=== PATIENT | male | born 1950 | race Caucasian/White ===

== ENCOUNTER 2021-11-01 14:57 | Emergency (ER) | payer OTHER ==
[~2021-11-01] VITALS: Ht 165.1 cm; Wt 65.8 kg
[2021-11-01 14:57] VITALS: BP_SYST 151
--- NOTE | 2021-11-01 14:57 | NUR ---
BROUGHT IN BY [facility] FROM [facility], TRIAGED AND PLACED IN BED #3. DR WOO AT BEDSIDE UPON ARRIVAL.
[2021-11-01] MEDS ORDERED: ALBUTEROL SULFATE 0.083% 2.5 MG/3 ML VIAL.NEB INH ONE (15:15)
[2021-11-01] MEDS ORDERED: IPRATROPIUM BROM 0.5 MG/2.5 ML VIAL.NEB (ATROVENT) INH ONE (15:15)
[2021-11-01] MEDS ORDERED: AMIO200T61 PO (15:22)
[2021-11-01] MEDS ORDERED: RIVA20TA PO (15:22)
[2021-11-01] MEDS ORDERED: METO-542 PO (15:22)
[2021-11-01] MEDS ORDERED: SODI126M PO (15:22)
[2021-11-01] MEDS ORDERED: TAMS-11 PO (15:22)
[2021-11-01] MEDS ORDERED: DEME150T8 PO (15:22)
[2021-11-01] MEDS ORDERED: NOR10 PO (15:22)
[2021-11-01] MEDS ORDERED: BENA40TA89 PO (15:22)
[2021-11-01] MEDS ORDERED: LIP10 PO (15:22)
[2021-11-01] MEDS ORDERED: PRO40 PO (15:22)
[2021-11-01] MEDS ORDERED: ASPI-1077 PO (15:22)
[2021-11-01] MEDS ORDERED: OXYIR5 PO (15:22)
--- NOTE | 2021-11-01 16:33 | NUR ---
REPORT TO SOILA UMANZOR
[2021-11-01 16:41] LABS: ANION GAP 7 (5-15); CALCIUM 8.3 mg/dL (8.4-11.0); CHLORIDE 94 mmol/L (98-107); CREATININE 0.84 mg/dL (0.55-1.30); GLUCOSE 129 mg/dL (70-99); POTASSIUM 4.5 mmol/L (3.5-5.1); SODIUM SERUM 127 mmol/L (136-145); UREA NITROGEN, BLOOD 20 mg/dL (8-21)
--- NOTE | 2021-11-01 16:45 | NUR ---
[place] of care received, per report patient had an episode of low O2 at [facility], pt is on 4L NC at the facility, pt O2 is 97 % on 4L NC at this time, afebrile, respirations are even adn unlabored, follows commands, cap refill <3, HR 101, BP 121/61, will cont to monitor.
[2021-11-01 16:51] LABS: ALANINE AMINOTRANSFERASE 10 U/L (12-78); ALBUMIN 2.1 g/dL (3.4-4.8); ASPARTATE AMINOTRANSFERASE 21 U/L (10-37); TOTAL BILIRUBIN 0.4 mg/dL (0.0-1.0)
[2021-11-01 16:59] LABS: BASOPHILS # (AUTO) 0.1 K/uL (0.0-0.2); BASOPHILS % (AUTO) 0.8 % (0.0-2.0); EOSINOPHILS # (AUTO) 0.1 K/uL (0.0-0.4); HEMATOCRIT 29.2 % (36-54); HEMOGLOBIN 9.4 g/dL (14.0-18.0); LYMPHOCYTES # (AUTO) 0.9 K/uL (1.0-5.5); LYMPHOCYTES % (AUTO) 8.1 % (20.5-51.5); MEAN CORPUSCULAR HEMOGLOBIN 29 pg (27-31); MEAN CORPUSCULAR HGB CONC 32 % (32-36); MEAN CORPUSCULAR VOLUME 90 fL (79.0-98.0); MONOCYTES # (AUTO) 0.7 K/uL (0.0-1.0); MONOCYTES % (AUTO) 6.5 % (1.7-9.3); NEUTROPHILS # (AUTO) 8.8 K/uL (1.8-7.7); NEUTROPHILS % (AUTO) 83.6 % (40.0-70.0); PLATELET COUNT (AUTO) 391 K/uL (130-430); RED BLOOD CELL COUNT(AUTO) 3.25 MIL/uL (4.2-6.2); RED CELL DISTRIBUTION WIDTH 20.3 % (9.0-15.0); WHITE BLOOD COUNT (AUTO) 10.6 K/uL (4.8-10.8)
[2021-11-01 19:04] VITALS: BP_SYST 121
== END 2021-11-01 19:04 | disposition home or self-care (01) ==
LOC: SED 14:57
DX: J44.1 Chronic obstructive pulmonary disease with (acute) exacerbation (principal); I10 Essential (primary) hypertension; K21.9 Gastro-esophageal reflux disease without esophagitis; Z79.899 Other long term (current) drug therapy; Z20.822 Contact with and (suspected) exposure to COVID-19
CPT/HCPCS: 36415; 71045; 80053; 83605; 83880; 85025; 87426; 87804 ×2; 93005; 94640; 99285; J7613